=== PATIENT | male | born 1975 | race Hispanic/Latino ===

== ENCOUNTER → 2024-03-11 12:36 | Outpatient (REF) | payer OTHER, SELFPAY ==
[2024-03-11 13:38] LABS: Hemoglobin 14.4 g/dL (13.0-18.0); Mean Corp Hgb Conc. 33.5 g/dL (33.0-37.0); Mean Corpuscular Hgb 28.3 pg (27.0-31.0); Mean Corpuscular Volume 84.6 fL (80.0-94.0); Mean Platelet Volume 9.3 fL (7.4-10.4); Platelet Count 235 10^3/uL (130-400); Red Blood Cell Count 5.08 10^6/uL (4.70-6.10); Red Cell Dist. Width 13.2 % (11.5-14.5)
[2024-03-11 14:14] LABS: ALT (SGPT) 40 U/L (0-50); AST (SGOT) 22 U/L (17-59); Albumin 4.4 g/dl (3.5-5.0); Alkaline Phosphatase 98 U/L (38-126); Blood Urea Nitrogen 17 mg/dl (9-20); Calcium 9.8 mg/dl (8.4-10.2); Carbon Dioxide 25 mmol/L (22-30); Chloride 107 mmol/L (98-107); Glucose 101 mg/dl (70-99); HDL Cholesterol 30 mg/dl; LDL Cholesterol, Calculated 146 mg/dl; Potassium 4.4 mmol/L (3.5-5.1); Sodium 139 mmol/L (135-145); Total Bilirubin 0.6 mg/dl (0.2-1.3); Total Cholesterol 208 mg/dl (50-199); Total Protein 7.3 g/dl (6.3-8.2); Triglyceride 164 mg/dl (10-149); Very Low Density Lipoprotein 32 mg/dl (0-30); eGFR > 60.00
[2024-03-11 14:44] LABS: TSH Reflex To Free T4 1.44 uIU/ml (0.47-4.68)
== END ==
LOC: CLINIC 12:36
PROVIDERS: ATTENDING PHYSICIAN Nurse Practitioner Adult Health
DX: Z00.00 Encounter for general adult medical examination without abnormal findings (principal)
CPT/HCPCS: 36415; 80053; 80061; 84443; 85027

== ENCOUNTER 2024-08-23 23:59 | Emergency (ER) | payer OTHER, SELFPAY ==
[2024-08-24 00:04] VITALS: BP 150/86
--- NOTE | 2024-08-24 01:21 | ED.GENMED ---
History of Present Illness
<MACIE Browne - Last Filed: 08/24/24 01:29>
General
Chief Complaint: Skin Problem
Source: patient
Time Seen by Provider: 08/24/24 01:16
Nursing documentation reviewed up to this point in time: agreed with
History of Present Illness
History of Present Illness:
Pt is a 49 yo M who presents to the emergency department for a 'lump' on his left lower abdomen that 'exploded' tonight. Pt states that he noticed the lump on his abdomen appear suddenly. He denies injury, trauma, cut, or scrape to the area. He
reports that earlier tonight he was sitting and noticed that the area felt different and states that it 'exploded'. Pt reports that pus came from the site. He states that he has had this happen twice before, one was under his axilla and another near
his eyebrow, and that the doctor would cut open the area and drain. Pt states that the area is still painful. He denies fever, chills, chest pain.
Past History
<MACIE Browne - Last Filed: 08/24/24 01:29>
Past History
ED Past Medical History: None
ED Past Surgical History: None
Social History
Tobacco: Non-smoker
Alcohol: None
Drug: None
Personal:
Living: with family
Employment: Employed
Review of Systems
<MACIE Browne - Last Filed: 08/24/24 01:29>
Review of Systems
Allergies reviewed?: Yes
Constitutional: Reports no symptoms
Respiratory: Reports no symptoms
Cardiac: Reports no symptoms
ABD/GI: Reports no symptoms
Skin: Reports other (circular erythematous lesion on left lower abdomen near umbilicus )
Phy Exam
<MACIE Browne - Last Filed: 08/24/24 01:29>
General Physical Exam
General Presentation: well appearing and no apparent distress
General age: appears stated age
General Skin: warm
General Habitus: normal
General Mental: alert
General Hydration: appears well hydrated
Skin Exam
Skin Exam: other (Erythematous and indurated circular abscess. Pus at the middle of the site. Tenderness to palpation )
Course
<MACIE Browne - Last Filed: 08/24/24 01:29>
Orders/Labs/Results
Orders:
Orders
08/24/24 02:17
Wound Culture [Wound/Abscess/Other Culture] Urgent
CHARMAINE Source: Abscess
Specimen Description:
08/24/24 02:18
Sulfamethox./Trimethoprim Ds [Bactrim Ds 800 mg/160 mg] 1 tablet PO NOW STA
Vital Signs
Initial and Last Documented VS:
Initial Vital Signs
Temp Pulse Resp BP Pulse Ox
98.2 F 68 18 150/86 98
08/24/24 00:04 08/24/24 00:04 08/24/24 00:04 08/24/24 00:04 08/24/24 00:04
Last Documented Vital Signs
Temp Pulse Resp BP Pulse Ox
98.2 F 63 18 124/71 98
08/24/24 00:04 08/24/24 02:15 08/24/24 02:15 08/24/24 02:15 08/24/24 02:15
<Naresh Srinivasan DO - Last Filed: 08/24/24 02:24>
Orders/Labs/Results
Orders:
Orders
08/24/24 02:17
Wound Culture [Wound/Abscess/Other Culture] Urgent
CHARMAINE Source: Abscess
Specimen Description:
08/24/24 02:18
Sulfamethox./Trimethoprim Ds [Bactrim Ds 800 mg/160 mg] 1 tablet PO NOW STA
Vital Signs
Initial and Last Documented VS:
Initial Vital Signs
Temp Pulse Resp BP Pulse Ox
98.2 F 68 18 150/86 98
08/24/24 00:04 08/24/24 00:04 08/24/24 00:04 08/24/24 00:04 08/24/24 00:04
Last Documented Vital Signs
Temp Pulse Resp BP Pulse Ox
98.2 F 63 18 124/71 98
08/24/24 00:04 08/24/24 02:15 08/24/24 02:15 08/24/24 02:15 08/24/24 02:15
<MACIE Browne - Last Filed: 08/24/24 01:29>
MDM/Problems Addressed
Differential Diagnosis Includes:
Abscess, skin injury
<MACIE Browne - Last Filed: 08/24/24 01:29>
*Critical Care Note
Total Time (30-74mins, 75-104mins- exclusive of procedures): Not Applicable
ED Attending Note
<MACIE Browne - Last Filed: 08/24/24 01:29>
-
Portions of this chart may have been created with voice recognition software.� Occasional wrong word or��sound alike� substitutions may have occurred due to the inherent limitations of voice recognition software.
<Naresh Srinivasan DO - Last Filed: 08/24/24 02:24>
ED Attending Note
Patient seen and examined by attending physician: Yes
I performed the substantive portion of visit, reviewed & personally made and approve the management plan that is documented in note by myself or ROSMERY.: Yes
ED Attending Note:
Pleasant 49-year-old male presents to the emergency department with an indurated area under his left abdomen opened up last evening draining purulent discharge. Patient denies fevers, chills, nausea or vomiting. He has had abscesses in the past.
Patient was seen in conjunction with the PA student. I have reviewed and agree with the history and treatment plan presented. On my independent physical exam, patient is awake, alert, and oriented x3, minimal acute distress abdomen is soft
nontender. No induration. Purulent material
Discharge Plan
Departure
Patient Disposition: Home (Routine Discharge)
Date of Disposition: 08/24/24
Time of Disposition: 02:21
Patient with high blood pressure during this ER visit?: Yes
Discharge Problem:
Abscess
Instructions: Wound Care (DC), BLOOD PRESSURE, Skin Abscess
Prescriptions:
New
sulfamethoxazole-trimethoprim [Bactrim DS] 800-160 mg tablet
1 tab PO BID 10 Days Qty: 20 0RF
No Action
penicillin V potassium 500 MG tablet
500 mg PO Q6 Qty: 40 0RF
ibuprofen 600 MG tablet
600 mg PO Q6 Qty: 20 0RF
Referrals:
[facility] [Provider Group]
[facility] [Outside]
[facility] [Outside]
NONE,* [Family Provider] -
Activity Restrictions/Additional Instructions:
It was a pleasure meeting you and taking part in your care. We hope for your continued healing and wellness.
Please read discharge instructions in their entirety. However, they are for general education and may not describe your exact diagnosis at discharge. Information on your ER visit and medical conditions were discussed with you along with appropriate
follow up information...
If indicated, please take your medications as instructed and indicated on discharge paperwork.
Please schedule a follow up appointment as directed. Call to schedule an appointment
Please return to the emergency department with ANY change in, persisting, or worsening of symptoms. If any of your symptoms do not improve, or persist, or become more severe within 6-12 hours, please return to the emergency department for further
care.
Please return to the emergency department if you develop a headache, neck pain/stiffness, fever greater than 100.4F, chest pain, shortness of breath, persistent nausea, vomiting, slurred speech, difficulty walking, numbness/tingling, weakness, signs
of infection or any other symptoms that are worrisome to you.
If you have any questions or concerns please do not hesitate to call the Hospital at or E-mail me directly at [email or web address]
Interventions
Interventions:
*Risk Screen - Suicide Last Done: 08/24/24 00:04
*General Assessment Last Done: 08/24/24 00:04
*Neglect/Abuse Screening Last Done: 08/24/24 00:04
*ED COVID-19 Vaccine History Last Done: 08/24/24 00:04
ED-Skin Assessment Last Done: 08/24/24 01:50
Discharge Date and Time
Print Language: GUATEMALAN
[2024-08-24 02:15] VITALS: BP 124/71
[2024-08-24] MEDS: BACTRIM DS 800 MG/160 MG 1 TABLET PO (02:27)
== END 2024-08-24 02:31 | disposition home or self-care (01) ==
LOC: EMR 23:59
PROVIDERS: EMERGENCY PHYSICIAN Student in an Organized Health Care Education/Training Program
DX: L02.211 Cutaneous abscess of abdominal wall (principal); R03.0 Elevated blood-pressure reading, without diagnosis of hypertension
CPT/HCPCS: 99283; 87070; 87205